=== PATIENT | male | born 2000 | race Two or more races ===

== ENCOUNTER 2021-04-25 22:13 | Emergency (ER) | payer OTHER ==
[~2021-04-25] VITALS: Ht 170.2 cm; Wt 63.0 kg
[2021-04-25 22:27] VITALS: BP 120/73
[2021-04-25] MEDS ORDERED: erythromycin ophthalmic ointment 1gm tube RIGHTEYE ONE (23:30)
[2021-04-25] MEDS ORDERED: ERYT1OIN6 RIGHTEYE (23:32)
== END 2021-04-26 00:20 | disposition home or self-care (01) ==
LOC: ER 22:14
DX: H10.89 Other conjunctivitis (principal); Z79.2 Long term (current) use of antibiotics
CPT/HCPCS: 99283